=== PATIENT | female | born 1935 | race Caucasian/White ===

== ENCOUNTER 2017-08-26 10:38 | Emergency (ER) | payer MEDICARE, OTHER ==
[~2017-08-26 10:38] MED LIST: AMLODIPINE BESY10 M1 PO; ASPIR 8181 MG PO; ENFAMIL D-V400 IU/ML PO; LIPI10 PO; LOTENSIN10 MG PO; METOPROLOL SUCC25 M1 PO; PREDNISONE1 MG PO; TRIBENZOR1 TA4 PO
[2017-08-26 10:55] VITALS: BP 162/82
== END 2017-08-26 11:39 | disposition home or self-care (01) ==
LOC: ED 10:38
DX: S16.1XXA Strain of muscle, fascia and tendon at neck level, initial encounter (principal); X50.9XXA Other and unspecified overexertion or strenuous movements or postures, initial encounter; Y93.H1 Activity, digging, shoveling and raking; Y99.8 Other external cause status; Y92.89 Other specified places as the place of occurrence of the external cause

== ENCOUNTER 2017-11-25 06:58 | Emergency (ER) | payer MEDICARE, OTHER ==
[~2017-11-25] VITALS: Ht 144.8 cm; Wt 61.7 kg
[2017-11-25 07:18] VITALS: BP 172/71; Ht 144.8 cm; Wt 61.7 kg
== END 2017-11-25 09:35 | disposition home or self-care (01) ==
LOC: ED 06:58
DX: J30.9 Allergic rhinitis, unspecified (principal); I10 Essential (primary) hypertension; E78.00 Pure hypercholesterolemia, unspecified

== ENCOUNTER 2017-12-11 15:36 | Emergency (ER) | payer MEDICARE, OTHER ==
[~2017-12-11] VITALS: Ht 147.3 cm; Wt 59.1 kg
[2017-12-11 15:40] VITALS: Ht 147.3 cm; Wt 59.1 kg
[2017-12-11 16:36] LABS: BASOPHIL % 0.3 % (0-2); PLATELET COUNT 168 x10^3mcL (130-400)
[2017-12-11 16:38] LABS: RED CELL DISTRIBUTION WIDTH 16.8 % (11.5-14.5)
[2017-12-11 16:52] LABS: CALCIUM 8.5 mg/dL (8.5-10.1); CARBON DIOXIDE 28.5 mmol/L (21-32); CHLORIDE SERUM 103 mmol/L (98-107); CREATININE SERUM 0.8 mg/dL (0.6-1.0); GLUCOSE SERUM 131 mg/dL (74-106); SODIUM SERUM 139 mmol/L (136-145)
[2017-12-11 16:56] LABS: ALBUMIN 3.7 g/dL (3.4-5.0); ALKALINE PHOSPHATASE 105 U/L (46-116); ALT/SGPT 17 U/L (14-59); AST/SGOT 20 U/L (15-37); BILIRUBIN TOTAL 0.72 mg/dL (0.20-1.00); TOTAL PROTEIN, SERUM 7.5 g/dL (6.4-8.2)
[2017-12-11 18:31] VITALS: BP 160/65
== END 2017-12-11 18:31 | disposition home or self-care (01) ==
LOC: ED 15:36
PROVIDERS: Emergency Medicine
DX: R42 Dizziness and giddiness (principal); R11.10 Vomiting, unspecified; I10 Essential (primary) hypertension; E78.00 Pure hypercholesterolemia, unspecified
CPT/HCPCS: 83880; J2405; J2765; J3490; J8597

== ENCOUNTER 2018-04-20 21:10 | Emergency (ER) | payer MEDICARE, OTHER ==
[~2018-04-20] VITALS: Ht 147.3 cm; Wt 61.2 kg
[2018-04-20 21:19] VITALS: Ht 147.3 cm; Wt 61.2 kg
[2018-04-20 23:01] VITALS: BP 147/75
== END 2018-04-20 23:01 | disposition home or self-care (01) ==
LOC: ED 21:10
DX: M16.12 Unilateral primary osteoarthritis, left hip (principal); E78.00 Pure hypercholesterolemia, unspecified; I10 Essential (primary) hypertension

== ENCOUNTER 2018-07-20 07:19 | Emergency (ER) | payer MEDICARE, OTHER ==
[~2018-07-20] VITALS: Ht 142.2 cm; Wt 64.4 kg
[2018-07-20 07:29] VITALS: BP 147/82; Ht 142.2 cm; Wt 64.4 kg
== END 2018-07-20 08:07 | disposition home or self-care (01) ==
LOC: ED 07:19
DX: L97.819 Non-pressure chronic ulcer of other part of right lower leg with unspecified severity (principal)
CPT/HCPCS: 90715